=== PATIENT | female | born 2000 | race Caucasian/White ===

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

== ENCOUNTER 2022-03-01 19:51 | Emergency (ER) | payer OTHER, SELFPAY ==
[2022-03-01] MEDS ORDERED: Acetaminophen 500 MG TAB ONE (20:40)
== END 2022-03-01 20:43 | disposition home or self-care (01) ==
LOC: NAV ERS 19:51
DX: S67.22XA Crushing injury of left hand, initial encounter (principal); W23.0XXA Caught, crushed, jammed, or pinched between moving objects, initial encounter
CPT/HCPCS: 29125

== ENCOUNTER 2022-03-31 10:03 | Emergency (ER) | payer SELFPAY ==
[2022-03-31] MEDS ORDERED: predniSONE 20 MG TAB ONE (10:22)
[2022-03-31] MEDS ORDERED: Famotidine 20 MG TAB ONE (10:22)
== END 2022-03-31 11:35 | disposition home or self-care (01) ==
LOC: NAV ERS 10:03
DX: L50.0 Allergic urticaria (principal)
CPT/HCPCS: 99283; J7512

== ENCOUNTER 2022-05-24 16:43 | Emergency (ER) | payer OTHER, SELFPAY ==
[2022-05-24] MEDS ORDERED: Meclizine HCl 25 MG TAB ONE (17:04)
[2022-05-24] MEDS ORDERED: Ondansetron ODT 4 MG TAB ONE (17:04)
== END 2022-05-24 17:19 | disposition home or self-care (01) ==
LOC: NAV ERS 16:43
DX: H81.399 Other peripheral vertigo, unspecified ear (principal)
CPT/HCPCS: Q0162

== ENCOUNTER 2022-06-08 20:56 | Emergency (ER) | payer SELFPAY ==
[2022-06-08 21:44] LABS: Bilirubin Negative (Negative); Blood, Urine Negative (Negative); Clarity Clear (Clear); Glucose, Urine (Dipstick) Negative (Negative); Ketone, Urine Negative (Negative); Leukocyte Trace (Negative); Nitrite Negative (Negative); Protein, Urine (Dipstick) Negative (Neg-Trace); Specific Gravity, Urine 1.025 (1.005-1.030)
[2022-06-08 21:46] LABS: Pregnancy Test - Urine (BHCG) Negative (Negative); Pregu Control Background? CLEAR/WHITE (CLR/WHITE); Pregu Control Bar Appear? YES (CONTROL BAR); Specific Gravity 1.023 (1.002-1.036)
[2022-06-08 21:49] LABS: Bacteria/HPF Rare-Few HPF (None Seen); RBC/HPF None Seen HPF (0-3); Squamous Epithelial 0-3 HPF (0-3); WBC/HPF 0-3 HPF (0-3)
[2022-06-08] MEDS ORDERED: Ondansetron ODT 4 MG TAB ONE (21:59)
== END 2022-06-08 22:41 | disposition home or self-care (01) ==
LOC: NAV ERS 20:56
DX: R11.2 Nausea with vomiting, unspecified (principal)
CPT/HCPCS: 81003; 81015; 81025; 99284; Q0162

== ENCOUNTER 2022-07-21 09:02 | Emergency (ER) | payer OTHER, SELFPAY ==
[2022-07-21 09:39] LABS: Bilirubin Negative (Negative); Blood, Urine Negative (Negative); Clarity Clear (Clear); Glucose, Urine (Dipstick) Negative (Negative); Ketone, Urine Negative (Negative); Leukocyte Small (Negative); Nitrite Negative (Negative); Protein, Urine (Dipstick) Negative (Neg-Trace); Specific Gravity, Urine 1.025 (1.005-1.030); Urobilinogen 0.2 mg/dL (Less than 2); pH, Urine 5.5 (5.0-9.0)
[2022-07-21 10:02] LABS: RBC/HPF None Seen HPF (0-3)
[2022-07-21 10:03] LABS: Bacteria/HPF 1+ HPF (None Seen)
[2022-07-21 10:15] LABS: Pregnancy Test - Urine (BHCG) Negative (Negative)
[2022-07-21 10:16] LABS: Pregu Control Background? CLEAR/WHITE (CLR/WHITE); Pregu Control Bar Appear? YES (CONTROL BAR); Specific Gravity 1.025 (1.002-1.036)
[2022-07-21 10:32] LABS: #Basophils 0.1 thou/uL (0.0-0.2); #Eosinphils 0.1 thou/uL (0.0-0.7); #Monocytes 0.4 thou/uL (0.11-0.59); #Neutrophils 4.7 thou/uL (1.40-6.50); %Eosinophils 1.6 % (0.0-10.0); %Lymphocytes 27.4 % (28.0-48.0); %Monocytes 5.3 % (0.0-4.0); %Neutrophils 64.8 % (31.0-61.0); Hemoglobin 12.6 g/dL (12.0-16.0); Mean Corpuscular Hemoglobin 28.6 pg (25.0-35.0); Mean Corpuscular Volume 86.6 fl (78.0-98.0); Mean Platelet Volume 10.4 fL (7.4-10.4); Platelet Count 172 10x3/uL (130-400); RBC Distribution Width 12.4 % (11.5-14.5); White Blood Cell (WBC) Count 7.3 10x3/uL (4.8-10.8)
[2022-07-21 10:50] LABS: BHCG - Serum Negative (NEGATIVE); Pregs Control Bar Appear? YES (CONTROL BAR)
== END 2022-07-21 10:25 | disposition home or self-care (01) ==
LOC: NAV ERS 09:02
DX: N30.00 Acute cystitis without hematuria (principal); N92.6 Irregular menstruation, unspecified
CPT/HCPCS: 81003; 81015; 81025; 84703; 85025; 87086; 99284

== ENCOUNTER 2022-08-10 11:30 | Emergency (ER) | payer OTHER, SELFPAY ==
[2022-08-10] MEDS ORDERED: diphenhydrAMINE 50 MG/ML VIAL IVP SCH (12:15)
[2022-08-10] MEDS ORDERED: Metoclopramide HCl 10 MG/2 ML VIAL IVP SCH (12:15)
[2022-08-10] MEDS ORDERED: Metoclopramide HCl 10 MG/2 ML VIAL ONE (12:17)
[2022-08-10] MEDS ORDERED: diphenhydrAMINE 50 MG/ML VIAL ONE (12:17)
[2022-08-10] MEDS ORDERED: Sodium Chloride 0.9% 1,000 ML ONE (12:32)
== END 2022-08-10 13:14 | disposition home or self-care (01) ==
LOC: NAV ERS 11:30
DX: S00.93XA Contusion of unspecified part of head, initial encounter (principal); G43.909 Migraine, unspecified, not intractable, without status migrainosus; W01.0XXA Fall on same level from slipping, tripping and stumbling without subsequent striking against object, initial encounter
CPT/HCPCS: 96374; 96375; J1200; J2765; J7050

== ENCOUNTER 2022-11-06 20:30 | Emergency (ER) | payer SELFPAY ==
[2022-11-06] MEDS ORDERED: Ibuprofen 200 MG TAB ONE (21:06)
== END 2022-11-06 22:00 | disposition home or self-care (01) ==
LOC: NAV ERS 20:30
DX: S93.411A Sprain of calcaneofibular ligament of right ankle, initial encounter (principal); W19.XXXA Unspecified fall, initial encounter

== ENCOUNTER 2022-12-16 07:04 | Emergency (ER) | payer OTHER, SELFPAY ==
[2022-12-16] MEDS ORDERED: diphenhydrAMINE 25 MG CAP ONE (07:30)
[2022-12-16] MEDS ORDERED: predniSONE 20 MG TAB ONE (07:30)
== END 2022-12-16 08:06 | disposition home or self-care (01) ==
LOC: NAV ERS 07:04
DX: T65.811A Toxic effect of latex, accidental (unintentional), initial encounter (principal)
CPT/HCPCS: 99282; J7512

== ENCOUNTER 2023-03-31 21:09 | Emergency (ER) | payer MEDICAID, OTHER ==
[2023-03-31] MEDS ORDERED: Ketorolac Tromethamine 30 MG/ML VIAL ONE (21:30)
[2023-03-31] MEDS ORDERED: Sodium Chloride 0.9% 1,000 ML ONE (21:30)
[2023-03-31] MEDS ORDERED: Metoclopramide HCl 10 MG/2 ML VIAL ONE (21:31)
[2023-03-31 21:45] LABS: #Basophils 0.1 thou/uL (0.0-0.2); #Eosinphils 0.3 thou/uL (0.0-0.7); #Lymphocytes 2.6 thou/uL (1.20-3.40); #Monocytes 0.5 thou/uL (0.11-0.59); #Neutrophils 6.2 thou/uL (1.40-6.50); %Basophils 0.8 % (0.0-1.0); %Eosinophils 3.2 % (0.0-10.0); %Lymphocytes 26.5 % (28.0-48.0); %Monocytes 5.3 % (0.0-4.0); %Neutrophils 64.2 % (31.0-61.0); Hematocrit 37.5 % (36.0-47.0); Hemoglobin 12.1 g/dL (12.0-16.0); Mean Corpuscular HGB CONC 32.2 g/dL (32.0-36.0); Mean Corpuscular Hemoglobin 26.9 pg (25.0-35.0); Mean Corpuscular Volume 83.6 fl (78.0-98.0); Platelet Count 188 10x3/uL (130-400); RBC Distribution Width 12.8 % (11.5-14.5); Red Blood Cell (RBC) Count 4.49 mill/uL (4.00-5.20); White Blood Cell (WBC) Count 9.7 10x3/uL (4.8-10.8)
[2023-03-31 21:50] LABS: Bilirubin Negative (Negative); Blood, Urine Negative (Negative); Clarity Clear (Clear); Glucose, Urine (Dipstick) Negative (Negative); Ketone, Urine Negative (Negative); Leukocyte Negative (Negative); Nitrite Negative (Negative); Protein, Urine (Dipstick) Negative (Neg-Trace); Urobilinogen 0.2 mg/dL (Less than 2)
[2023-03-31 21:55] LABS: BHCG - Serum Negative (NEGATIVE); Pregs Control Bar Appear? YES (CONTROL BAR)
[2023-03-31 21:55] LABS: Bacteria/HPF None Seen HPF (None Seen); CAUTI Indications for Culture Fever or rigors; RBC/HPF None Seen HPF (0-3); Squamous Epithelial None Seen HPF (0-3); Urine Culture Reflex No No; WBC/HPF None Seen HPF (0-3)
[2023-03-31 21:59] LABS: Anion Gap 14 mmol/L (10-20); BUN (Urea Nitrogen) 9 mg/dL (7.0-18.7); Calc. Creatinine Clearance 0 mL/min (70-130); Calcium 9.5 mg/dL (7.8-10.44); Carbon Dioxide 21 mmol/L (22-29); Chloride 105 mmol/L (98-107); Estimated GFR 108; Glucose 95 mg/dL (70-105); Sodium 136 mmol/L (136-145)
[2023-03-31] MEDS ORDERED: Haloperidol Lactate 5 MG/ML VIAL ONE (22:06)
[2023-03-31] MEDS ORDERED: diphenhydrAMINE 50 MG/ML VIAL ONE (22:08)
== END 2023-03-31 22:33 | disposition home or self-care (01) ==
LOC: NAV ERS 21:09
DX: G43.909 Migraine, unspecified, not intractable, without status migrainosus (principal); R11.0 Nausea; Z79.899 Other long term (current) drug therapy
CPT/HCPCS: 36415; 80048; 81001; 84703; 85025; 96361; 96374; 96375; J1200; J1630; J1885; J2765; J7050

== ENCOUNTER 2023-06-08 11:31 | Emergency (ER) | payer OTHER, SELFPAY | END 2023-06-08 14:28 | disposition home or self-care (01) | LOC: NAV ERS 11:31 | DX: S93.401A Sprain of unspecified ligament of right ankle, initial encounter (principal); X58.XXXA Exposure to other specified factors, initial encounter ==

== ENCOUNTER 2024-09-23 15:02 | Emergency (ER) | payer OTHER | END 2024-09-23 15:27 | disposition home or self-care (01) | LOC: NAV ERS 15:02 | DX: L23.7 Allergic contact dermatitis due to plants, except food (principal) | CPT/HCPCS: 99282 ==